=== PATIENT | male | born 1965 | race Caucasian/White ===

== ENCOUNTER 2016-11-09 20:59 | Inpatient (IN) | payer BC ==
[~2016-11-09] VITALS: Ht 172.7 cm; Wt 103.7 kg
[~2016-11-09 20:59] MED LIST: BENEMID500 MG PO
[2016-11-09 21:27] LABS: HEMATOCRIT 46.4 % (38.0-50.0); MCH 29.9 PG (29.0-34.0); MCHC 34.5 G/DL (30.0-36.0); MCV 86.6 FL (86-99); MEAN PLAT.VOLUME 10.9 uM^3 (9.0-12.4); PLATELET COUNT 200 K/uL (156-360); RBC DIS.WIDTH-CV 13.1 % (11.8-14.6); RBC DIS.WIDTH-SD 40.7 % (39-53); RED BLOOD COUNT 5.36 M/uL (4.00-5.50)
[2016-11-09 21:37] LABS: ADD MIUA? YES; BILIRUBIN NEGATIVE; BLOOD NEGATIVE; COLOR YELLOW ((YELLOW)); GLUCOSE (STRIP) NEGATIVE; KETONES 5; LEUKOCYTES NEGATIVE; NITRITE NEGATIVE; PROTEIN (STRIP) 30; SPECIFIC GRAVITY 1.028 (1.000-1.030); UROBILINOGEN 0.2 MG/DL (0.2-1.0)
[2016-11-09 21:38] LABS: CHLORIDE 103 mEq/L (99-109); POTASSIUM 3.7 mEq/L (3.7-5.4); SODIUM 138 mEq/L (136-147)
[2016-11-09 21:40] LABS: GLUCOSE 122 mg/dL (70-99)
[2016-11-09 21:41] LABS: ANION GAP 12 MEQ/L (2-14)
[2016-11-09 21:44] LABS: GFR ESTIMATE (CALCULATED) > 59 mL/min/
[2016-11-09 21:45] LABS: UREA NITROGEN (BUN) 22 mg/dL (9-23)
[2016-11-09 21:49] LABS: BACTERIA RARE /HPF; EPITHELIAL CELLS 1+ /HPF; MUCUS 2+ /LPF; RED BLOOD CELLS 0-5 /HPF (0-5); UCUL ADDED? NO; WHITE BLOOD CELLS 0-5 /HPF (0-5)
[2016-11-10] MEDS ORDERED: GLUCOPHAGE500 MG PO (03:56)
[2016-11-10] MEDS ORDERED: ALLOPURINOL300 MG PO (03:57)
[2016-11-10] MEDS ORDERED: LISINOPRIL5 MG PO (03:57)
[2016-11-10 04:05] LABS: POINT-OF-CARE METER ID UU13113702
[2016-11-10 04:21] VITALS: BP 126/75
[2016-11-10 06:16] LABS: EOSINOPHIL (%) 1.9 % (0-5); EOSINOPHIL COUNT 0.2 K/uL (0-0.3); HEMATOCRIT 40.8 % (38.0-50.0); IMMATURE GRANULOCYTE (%) 0.4 % (0.0-0.7); IMMATURE GRANULOCYTE COUNT 0.1 K/uL; INSTRUMENT ABS NEUTROPHIL CT 8.2 K/uL; LYMPHOCYTE COUNT 2.4 K/uL (1.0-2.8); MCH 30.4 PG (29.0-34.0); MCHC 34.1 G/DL (30.0-36.0); MCV 89.3 FL (86-99); MEAN PLAT.VOLUME 11.4 uM^3 (9.0-12.4); MONOCYTE (%) 7.1 % (3-12); MONOCYTE COUNT 0.8 K/uL (0-0.8); NEUTROPHIL (%) 69.8 % (45-76); NEUTROPHIL COUNT 8.2 K/uL (1.8-6.4); PLATELET COUNT 142 K/uL (156-360); RBC DIS.WIDTH-CV 13.2 % (11.8-14.6); RBC DIS.WIDTH-SD 43.1 % (39-53); RED BLOOD COUNT 4.57 M/uL (4.00-5.50); WHITE BLOOD COUNT 11.8 K/uL (4.1-10.2)
[2016-11-10 06:39] LABS: ANION GAP 6 MEQ/L (2-14); CHLORIDE 104 MEQ/L (99-109); GFR ESTIMATE (CALCULATED) > 59 mL/min/; GLUCOSE 124 mg/dL (70-99); POTASSIUM 4.4 MEQ/L (3.7-5.4); SAMPLE HEMOLYSIS CHECK 0; SAMPLE ICTERIC CHECK 0; SAMPLE LIPEMIA CHECK 0; SODIUM 138 MEQ/L (136-147); UREA NITROGEN (BUN) 19 mg/dL (9-23)
[2016-11-10 08:05] VITALS: BP 112/68
[2016-11-10 12:17] LABS: POINT-OF-CARE METER ID UU14208750
[2016-11-10 12:26] LABS: ADD MIUA? NO; BILIRUBIN NEGATIVE; BLOOD NEGATIVE; COLOR YELLOW ((YELLOW)); GLUCOSE (STRIP) NEGATIVE; KETONES NEGATIVE; LEUKOCYTES NEGATIVE; NITRITE NEGATIVE; PROTEIN (STRIP) NEGATIVE; SPECIFIC GRAVITY 1.031 (1.000-1.030)
[2016-11-10 16:39] VITALS: BP 120/58
[2016-11-10 17:38] LABS: POINT-OF-CARE METER ID UU14208750
[2016-11-10 19:39] VITALS: BP 107/61
[2016-11-11] VITALS (7 sets, daily range): BP systolic 103–142; BP diastolic 55–74
[2016-11-11 01:43] LABS: POINT-OF-CARE METER ID UU14208750
[2016-11-11 06:05] LABS: POINT-OF-CARE METER ID UU14208750
[2016-11-11 06:49] LABS: EOSINOPHIL (%) 1.8 % (0-5); EOSINOPHIL COUNT 0.2 K/uL (0-0.3); HEMATOCRIT 40.5 % (38.0-50.0); IMMATURE GRANULOCYTE (%) 0.3 % (0.0-0.7); INSTRUMENT ABS NEUTROPHIL CT 7.2 K/uL; LYMPHOCYTE COUNT 1.8 K/uL (1.0-2.8); MCHC 33.6 G/DL (30.0-36.0); MCV 89.2 FL (86-99); MEAN PLAT.VOLUME 11.1 uM^3 (9.0-12.4); MONOCYTE (%) 7.3 % (3-12); MONOCYTE COUNT 0.7 K/uL (0-0.8); NEUTROPHIL (%) 72.2 % (45-76); NEUTROPHIL COUNT 7.2 K/uL (1.8-6.4); PLATELET COUNT 145 K/uL (156-360); RBC DIS.WIDTH-CV 12.9 % (11.8-14.6); RBC DIS.WIDTH-SD 42.4 % (39-53); RED BLOOD COUNT 4.54 M/uL (4.00-5.50); WHITE BLOOD COUNT 9.9 K/uL (4.1-10.2)
[2016-11-11 07:14] LABS: ALKALINE PHOSPHATASE 42 IU/L (3-129); ANION GAP 6 MEQ/L (2-14); CHLORIDE 102 MEQ/L (99-109); GFR ESTIMATE (CALCULATED) > 59 mL/min/; GLUCOSE 99 mg/dL (70-99); MAGNESIUM 1.8 mg/dl (1.3-2.7); POTASSIUM 3.9 MEQ/L (3.7-5.4); SAMPLE HEMOLYSIS CHECK 0; SAMPLE ICTERIC CHECK 0; SAMPLE LIPEMIA CHECK 0; SODIUM 137 MEQ/L (136-147); TOTAL BILIRUBIN 1.5 MG/DL (0.0-1.0); UREA NITROGEN (BUN) 15 mg/dL (9-23)
[2016-11-11 11:42] LABS: POINT-OF-CARE METER ID UU14208750
[2016-11-11] MEDS ORDERED: COZAAR25 MG PO (15:43)
[2016-11-11 17:05] LABS: POINT-OF-CARE METER ID UU14208750
[2016-11-11 21:58] LABS: POINT-OF-CARE METER ID UU14162508
[2016-11-11 22:27] LABS: POINT-OF-CARE METER ID UU14162508
[2016-11-11 22:56] LABS: POINT-OF-CARE METER ID UU14162508
[2016-11-12 06:46] LABS: EOSINOPHIL (%) 5.4 % (0-5); EOSINOPHIL COUNT 0.4 K/uL (0-0.3); IMMATURE GRANULOCYTE (%) 0.4 % (0.0-0.7); INSTRUMENT ABS NEUTROPHIL CT 4.3 K/uL; LYMPHOCYTE COUNT 1.6 K/uL (1.0-2.8); MCH 30.6 PG (29.0-34.0); MCHC 34.4 G/DL (30.0-36.0); MEAN PLAT.VOLUME 10.6 uM^3 (9.0-12.4); MONOCYTE (%) 9.6 % (3-12); MONOCYTE COUNT 0.7 K/uL (0-0.8); NEUTROPHIL COUNT 4.3 K/uL (1.8-6.4); PLATELET COUNT 147 K/uL (156-360); RBC DIS.WIDTH-CV 12.9 % (11.8-14.6); RBC DIS.WIDTH-SD 42.1 % (39-53); RED BLOOD COUNT 4.38 M/uL (4.00-5.50); WHITE BLOOD COUNT 7.1 K/uL (4.1-10.2)
[2016-11-12 07:00] LABS: POINT-OF-CARE METER ID UU14208750
[2016-11-12 07:10] LABS: ANION GAP 7 MEQ/L (2-14); CHLORIDE 105 MEQ/L (99-109); GFR ESTIMATE (CALCULATED) > 59 mL/min/; GLUCOSE 89 mg/dL (70-99); MAGNESIUM 1.9 mg/dl (1.3-2.7); POTASSIUM 4.2 MEQ/L (3.7-5.4); SAMPLE HEMOLYSIS CHECK 0; SAMPLE ICTERIC CHECK 0; SAMPLE LIPEMIA CHECK 0; SODIUM 140 MEQ/L (136-147); UREA NITROGEN (BUN) 10 mg/dL (9-23)
[2016-11-12 07:17] LABS: ALKALINE PHOSPHATASE 35 IU/L (3-129); ANION GAP 7 MEQ/L (2-14); CHLORIDE 105 MEQ/L (99-109); GFR ESTIMATE (CALCULATED) > 59 mL/min/; GLUCOSE 89 mg/dL (70-99); POTASSIUM 4.2 MEQ/L (3.7-5.4); SAMPLE HEMOLYSIS CHECK 0; SAMPLE ICTERIC CHECK 0; SAMPLE LIPEMIA CHECK 0; SODIUM 140 MEQ/L (136-147); UREA NITROGEN (BUN) 9 mg/dL (9-23)
[2016-11-12 07:22] LABS: TOTAL BILIRUBIN 0.8 MG/DL (0.0-1.0)
[2016-11-12 07:35] VITALS: BP 108/54
[2016-11-12] MEDS ORDERED: FLAGYL500 MG PO (10:22)
[2016-11-12] MEDS ORDERED: TYLENOL REGULA325 MG PO (10:22)
[2016-11-12] MEDS ORDERED: CIPRO500 MG PO (10:22)
[2016-11-12 11:52] LABS: POINT-OF-CARE METER ID UU14208750
== END 2016-11-12 13:34 | disposition home or self-care (01) | DRG 392 ==
LOC: EME 20:59 → EXP 20:59 → EDOF 11-10 02:30 → 2EASTP 11-10 02:30 → ENRESERV 11-10 02:31 → 2EASTP 11-10 04:05
PROVIDERS: Hospitalist; Internal Medicine; Naturopath; Physician Assistant Surgical
DX: K57.20 Diverticulitis of large intestine with perforation and abscess without bleeding (principal); K66.8 Other specified disorders of peritoneum; E11.9 Type 2 diabetes mellitus without complications; M10.9 Gout, unspecified; I10 Essential (primary) hypertension; G44.40 Drug-induced headache, not elsewhere classified, not intractable; T40.2X5A Adverse effect of other opioids, initial encounter; K59.00 Constipation, unspecified; Z79.84 Long term (current) use of oral hypoglycemic drugs; Z87.891 Personal history of nicotine dependence; Z87.442 Personal history of urinary calculi; Z80.0 Family history of malignant neoplasm of digestive organs; Z82.49 Family history of ischemic heart disease and other diseases of the circulatory system; Z83.3 Family history of diabetes mellitus; Z88.0 Allergy status to penicillin
CPT/HCPCS: 74177; 80048; 80053; 81003; 82565; 82948; 83605; 83735; 84520; 85025; 85027; 86140; 99281; 99285; J0744; J1170; J1650; J1815; J1885; J2270; J2405; J7030; S0028; S0030